=== PATIENT | female | born 1965 | race Caucasian/White ===

== ENCOUNTER 2016-06-26 17:58 | Emergency (ER) | payer OTHER ==
[2016-06-26 18:12] VITALS: RESP 16; TEMP 98.4; O2SAT 99
[2016-06-26 18:27] VITALS: BMI 26.6
[2016-06-26] MEDS ORDERED: Famotidine 20mg/50ml 50 ML IV STA (18:47)
[2016-06-26] MEDS ORDERED: Sodium Chloride 0.9% 1,000 ML IV STA (18:47)
--- NOTE | 2016-06-26 19:02 | ED PDOC ---
Arrival/HPI - General Chief Complaint: Abdominal Pain Time Seen by Provider: 06/26/16 18:46 Historian: Patient - History of Present Illness Narrative History of Present Illness (Text): 06/26/16 18:33 A 50 year old female presents to the emergency department complaining of constant right lower abdominal pain that began an hour and half ago. Pain is associated with nausea and non bloody, no bilious vomiting. There are no relieving or exacerbation factors. Patient mentions she had some hematuria 2 weeks ago. She denies any urinary changes at this time. Patient denies any fever , chills or any other complaints. Time/Duration: 1-3 hours Symptom Onset: Sudden Symptom Course: Unchanged Quality: Other Activities at Onset: Rest Context: Home Associated Symptoms (Text): nausea and vomiting Past Medical History - Provider Review Nursing Documentation Reviewed: Yes - Psychiatric Hx Substance Use: No - Surgical History Hx Section: Yes (x 2) Family/Social History - Physician Review Nursing Documentation Reviewed: Yes Family/Social History: No Known Family HX Smoking Status: Never Smoked Hx Alcohol Use: No Hx Substance Use: No Allergies/Home Meds Allergies/Adverse Reactions: Allergies No Known Allergies Allergy (Verified 06/26/16 18:27) Physical Exam - Physical Exam Narrative Physical Exam (Text): - Review of Systems Constitutional: Normal. absent: Fatigue, Weight Change, Fevers Eyes: Normal ENT: Normal Respiratory: Normal absent: SOB, Cough, Sputum Cardiovascular: Normal absent: Chest pain, Palpitations, Syncope Gastrointestinal: Right lower abdominal pain. Nausea. Vomiting. absent: Diarrhea , Genitourinary: Normal. absent: Dysuria, Frequency, Hematuria Musculoskeletal: Normal. absent: Arthralgias, Back Pain, Neck Pain Skin: Normal Neurological: Normal absent: Focal Weakness Endocrine: Normal Hemo/Lymphatic: Normal Psychiatric: Normal - Physical exam Patient appears age appropriate, speaking full sentences without difficulty - Systems Exam Head: Present: Atraumatic, Normocephalic Pupils: Present: PERRL Extraocular Muscles: Present: EOMI Conjunctiva: Present: Normal Mouth: Present: Moist Mucous Membranes Neck: Present: Normal Range of Motion. No: MIDLINE TENDERNESS, Paraspinal Tenderness Respiratory/Chest: Present: Clear to Auscultation, Good Air Exchange. No: Respiratory Distress, Accessory Muscle Use, Tachypneic Cardiovascular: Present: Regular Rate and Rhythm, Normal S1, S2, Peripheral Pulses Present. No: Murmurs Abdomen: Present: Normal Bowel Sounds. Right lower quadrant tenderness. No: Peritoneal Signs, Rebound, Guarding, Distention Back: Present: Right CVA tenderness with palpation. No: Midline Tenderness, Paraspinal Tenderness Upper Extremity: Present: Normal Inspection. No: Cyanosis, Edema Lower Extremity: Present: Normal Inspection. No: Edema Neurological: Present: GCS=15, Speech Normal, cranial nerves II through XII fully intact with no cerebellar abnormality, neuro-sensory fully intact. No focal neurological deficits. Skin: Present: Warm, Dry, Normal Color. No: Rashes Lymphatic: Present: OX3, NI, NC Psychiatric: Present: Alert, Oriented x 3, Normal Insight, Normal Concentration Vital Signs Reviewed: Yes Vital Signs Temp Pulse Resp BP Pulse Ox 06/26/16 22:47 74 16 113/66 99 06/26/16 19:59 80 16 142/82 99 06/26/16 17:59 98.4 F 77 16 139/70 99 Temperature: Afebrile Blood Pressure: Normal Pulse: Regular Respiratory Rate: Normal Appearance: Positive for: Well-Appearing, Non-Toxic, Comfortable Pain Distress: None Mental Status: Positive for: Alert and Oriented X 3 Medical Decision Making ED Course and Treatment: 06/26/16 18:33 Impression: A 50 year old female with right lower quadrant pain. On physical examination the patient has right CVA tenderness, right lower quadrant tenderness to palpation. Differential Diagnosis included but are not limited to: Renal colic vs. appendicitis vs. nephrolithiasis Plan: -- Abdomen/Pelvis CT -- Labs -- Urinalysis -- Pepcid, Toradol, Zofran and IV Fluids -- Reassess and disposition Progress Notes: 06/26/16 21:53 On reevaluation, patient's abdomen is soft nontender nondistended with positive bowel sounds in all 4 quadrants and no peritoneal signs. Patient states that she feels much better. Currently going to CAT scan Patient informed that she has hematuria, and she was instructed to follow up with a urologist and director of solutions architecture for further workup. Patient verbalized understanding. 06/26/16 22:57 CT FINDINGS: Lower thorax: Mild atelectasis/scarring. ABDOMEN: Liver: Fatty infiltration. Gallbladder and bile ducts: No calcified stones. No ductal dilation. Pancreas: Unremarkable. No ductal dilation. Spleen: No splenomegaly. Adrenals: No mass. Kidneys and ureters: No renal calculi. Mild pelvocaliectasis of RIGHT kidney. Mildly dilated RIGHT ureter. 0.3 x 0.3 x 0.3 cm calculus within RIGHT distal ureter. Stomach and bowel: No definite mural thickening. No obstruction. Appendix: No findings to suggest acute appendicitis. PELVIS: Bladder: Unremarkable. No stones. Reproductive: Unremarkable as visualized. ABDOMEN and PELVIS: Intraperitoneal space: No significant fluid collection. No free air. Bones/joints: No acute fracture. Soft tissues: Tiny umbilical hernia containing fat. Vasculature: Unremarkable. No abdominal aortic aneurysm. Lymph nodes: No pathologically enlarged lymph nodes. IMPRESSION: 1. RIGHT distal ureteral calculus with mild hydroureteronephrosis. 2. Incidental/non-acute findings are described above. Dictated and Authenticated by: Haseeb Graf MD On reevaluation, patient reports that she feels much better and would like to be discharged home. Patient's repeat abdominal exam is soft, nontender, non distended with positive bowel sounds in all 4 quadrants and no peritoneal signs. Patient is tolerating PO without any difficulty. Pt states she understands to return to the ER right away for new or worsening symptoms or for inability to f/u with PMD or specialist as instructed. Patient states that she fully agrees with and understands discharge instructions. States that she agrees with the plan and disposition. Verbalized and repeated discharge instructions and plan. I have given the patient opportunity to ask any additional questions. - Lab Interpretations Lab Results: 06/26/16 19:31 06/26/16 19:31 Lab Results 06/26/16 19:31: WBC 5.3, RBC 4.58, Hgb 11.2 L, Hct 34.4 L, MCV 75.1 L, MCH 24.5 L, MCHC 32.6, RDW 15.1 H, Plt Count 276, MPV 11.3 H, Gran % 60.6, Lymph % (Auto ) 30.2, [place] % (Auto) 8.4 H, Eos % (Auto) 0.4 L, Baso % (Auto) 0.4, Gran # 3.23 , Lymph # 1.6, [place] # 0.5, Eos # 0.0, Baso # 0.02, PT 10.7, INR 0.99, APTT 27.1 , Sodium 137, Potassium 4.1, Chloride 104, Carbon Dioxide 21, Anion Gap 16, BUN 9, Creatinine 0.6, Est GFR ( Amer) > 60, Est GFR (Non-Af Amer) > 60, Random Glucose 100, Calcium 9.6, Total Bilirubin 0.3, AST 28, ALT 25, Alkaline Phosphatase 87, Total Protein 8.2, Albumin 4.4, Globulin 3.8, Albumin/Globulin Ratio 1.2, Lipase 178, Urine Color Yellow, Urine Appearance Clear, Urine pH 6.0 , Ur Specific [place] >= 1.030, Urine Protein Negative, Urine Glucose (UA) Negative, Urine Ketones Negative, Urine Blood Small H, Urine Nitrate Negative, Urine Bilirubin Negative, Urine Urobilinogen 0.2, Ur Leukocyte Esterase Negative , Urine RBC 5 - 10, Urine WBC 0 - 2, Ur Epithelial Cells 6 - 8, Amorphous Sediment Few, Urine Bacteria Many, Urine Other [place] I have reviewed the lab results: Yes - RAD Interpretation Radiology Orders: 06/26/16 18:46 ABD & PELVIS W/O PO OR IV CONT [CT] Stat - Medication Orders Current Medication Orders: Discontinued Medications Famotidine (Pepcid 20mg/50ml Premix) 50 mls @ 100 mls/hr IV STAT STA Stop: 06/26/16 19:16 Last Admin: 06/26/16 19:35 Dose: 100 MLS/HR eMAR Start Stop Document 06/26/16 19:35 HI (Rec: 06/26/16 19:35 NC [id number]) Intravenous Solution Start Date 06/26/16 Start Time 19:25 Sodium Chloride (Sodium Chloride 0.9%) 1,000 mls @ 1,000 mls/hr IV .Q1H STA Stop: 06/26/16 19:46 Last Admin: 06/26/16 19:41 Dose: 1,000 MLS/HR eMAR Start Stop Document 06/26/16 19:41 HI (Rec: 06/26/16 19:41 NC [id number]) Intravenous Solution Start Date 06/26/16 Start Time 18:25 Ketorolac Tromethamine (Toradol) 15 mg IVP STAT STA Stop: 06/26/16 18:48 Last Admin: 06/26/16 19:41 Dose: 15 MG IVP Administration Document 06/26/16 19:41 HI (Rec: 06/26/16 19:41 NC [id number]) Charges for Administration # of IVP Administrations 1 Ondansetron HCl (Zofran Inj) 4 mg IVP STAT STA Stop: 06/26/16 18:48 Last Admin: 06/26/16 19:41 Dose: 4 MG IVP Administration Document 06/26/16 19:41 HI (Rec: 06/26/16 19:42 NC [id number]) Charges for Administration # of IVP Administrations 1 - Scribe Statement The provider has reviewed the documentation as recorded by the Scribe Mckenna Hughes Provider Scribe Attestation: All medical record entries made by the Scribe were at my direction and personally dictated by me. I have reviewed the chart and agree that the record accurately reflects my personal performance of the history, physical exam, medical decision making, and the department course for this patient. I have also personally directed, reviewed, and agree with the discharge instructions and disposition. Disposition/Present on Arrival - Present on Arrival Any Indicators Present on Arrival: No History of DVT/PE: No History of Uncontrolled Diabetes: No Urinary Catheter: No History of Decub. Ulcer: No History Surgical Site Infection Following: None - Disposition Have Diagnosis and Disposition been Completed?: Yes Diagnosis: Renal colic Disposition: HOME/ ROUTINE Disposition Time: 22:59 Patient Plan: Discharge Condition: GOOD Discharge Instructions (ExitCare): Renal Colic (ED) Additional Instructions: PLEASE RETURN TO THE EMERGENCY DEPARTMENT FOR NEW OR WORSENING SYMPTOMS. RETURN RIGHT AWAY IF YOU CANNOT FOLLOW UP WITH YOUR PRIMARY CARE DOCTOR, CLINIC, OR SPECIALIST IN 1-2 DAYS. Prescriptions: Tamsulosin [Flomax] 0.4 mg PO DAILY #4 cap Ibuprofen [Motrin] 600 mg PO Q8 PRN #12 tab PRN Reason: Pain, Moderate (4-7) Ondansetron [Zofran Odt] 4 mg PO Q6 PRN #14 odt PRN Reason: Nausea/Vomiting Referrals: Chelly Cervantes MD [Primary Care Provider] - Follow up with primary Jim Balderrama MD [Staff Provider] - Follow up with primary Belle Balderrama MD [Staff Provider] - Follow up with primary Forms: WORK NOTE
[2016-06-26 19:41] LABS: ADD MANUAL DIFF? NO
[2016-06-26 19:47] LABS: BASO # 0.02 K/mm3 (0.0-2.0); BASO % 0.4 % (0.0-3.0); EOS % 0.4 % (1.5-5.0); GRAN # 3.23 (1.4-6.5); GRAN % 60.6 % (50.0-68.0); HEMATOCRIT 34.4 % (36.0-48.0); LYMPH # 1.6 (1.2-3.4); LYMPH % 30.2 % (22.0-35.0); MEAN CELL VOLUME 75.1 fL (80.0-105.0); MEAN CORPUSCULAR HEMOGLOBIN 24.5 pg (25.0-35.0); MEAN CORPUSCULAR HGB CONC 32.6 g/dl (31.0-37.0); MEAN PLATELET VOLUME 11.3 fl (7.0-11.0); MONO # 0.5 (0.1-0.6); MONO % 8.4 % (1.0-6.0); PLATELET COUNT 276 10^3/uL (120.0-450.0); RED CELL DISTRIBUTION WIDTH 15.1 % (11.5-14.5); URINE BILIRUBIN NEGATIVE (NEGATIVE); URINE BLOOD SMALL (NEGATIVE); URINE GLUCOSE (UA) NEGATIVE (NEGATIVE); URINE KETONE NEGATIVE (NEGATIVE); URINE LEUKOCYTE ESTERASE NEGATIVE Leu/uL (NEGATIVE); URINE PROTEIN NEGATIVE mg/dL (<30 mg/dL); URINE UROBILINOGEN 0.2 E.U./dL (<1 E.U./dL); WHITE BLOOD COUNT 5.3 10^3/ul (4.5-11.0)
[2016-06-26 19:52] LABS: URINE APPEARANCE CLEAR (CLEAR); URINE COLOR YELLOW (YELLOW)
[2016-06-26 19:56] LABS: URINE BACTERIA MANY (NEG); URINE WBC 0 - 2 /hpf (0-6)
[2016-06-26 19:57] LABS: URINE AMORPHOUS SEDIMENT FEW
[2016-06-26 20:02] LABS: ALB/GLOB RATIO 1.2 (1.1-1.8); ALKALINE PHOSPHATASE 87 U/L (38-133); ALT/SGPT 25 U/L (7-56); AST/SGOT 28 U/L (15-39); BILIRUBIN,TOTAL 0.3 mg/dL (0.2-1.3); BLOOD UREA NITROGEN 9 mg/dL (7-21); CALCIUM 9.6 mg/dL (8.4-10.5); CARBON DIOXIDE 21 mmol/L (21-33); CHLORIDE 104 mmol/L (98-107); GFR AFRICAN-AMERICAN > 60; GLUCOSE,RANDOM 100 mg/dL (70-110); LIPASE 178 U/L (23-300); POTASSIUM 4.1 mmol/L (3.6-5.0); SODIUM 137 mmol/L (132-148); TOTAL PROTEIN 8.2 g/dL (5.8-8.3)
[2016-06-26 20:28] LABS: INR 0.99 (0.93-1.08); PARTIAL THROMBOPLASTIN TIME 27.1 Seconds (23.7-30.8)
[2016-06-26 22:47] VITALS: BP 113/66; PULSE 74
--- NOTE | 2016-06-26 22:52 | CT ---
EXAM: CT Abdomen and Pelvis Without Intravenous Contrast. CLINICAL HISTORY: 50 years old, female; Pain; Abdominal pain; Localized; Right lower quadrant (rlq); Additional info: Rlq pain TECHNIQUE: Axial computed tomography images of the abdomen and pelvis without intravenous contrast. This CT exam was performed using one or more of the following dose reduction techniques: automated exposure control, adjustment of the mA and/or kV according to patient size, and/or use of iterative reconstruction technique. Coronal and sagittal reformatted images were created and reviewed. COMPARISON: US - TRANSVAGINAL 06/21/2016 1:30:24 PM FINDINGS: Lower thorax: Mild atelectasis/scarring. ABDOMEN: Liver: Fatty infiltration. Gallbladder and bile ducts: No calcified stones. No ductal dilation. Pancreas: Unremarkable. No ductal dilation. Spleen: No splenomegaly. Adrenals: No mass. Kidneys and ureters: No renal calculi. Mild pelvocaliectasis of RIGHT kidney. Mildly dilated RIGHT ureter. 0.3 x 0.3 x 0.3 cm calculus within RIGHT distal ureter. Stomach and bowel: No definite mural thickening. No obstruction. Appendix: No findings to suggest acute appendicitis. PELVIS: Bladder: Unremarkable. No stones. Reproductive: Unremarkable as visualized. ABDOMEN and PELVIS: Intraperitoneal space: No significant fluid collection. No free air. Bones/joints: No acute fracture. Soft tissues: Tiny umbilical hernia containing fat. Vasculature: Unremarkable. No abdominal aortic aneurysm. Lymph nodes: No pathologically enlarged lymph nodes. IMPRESSION: 1. RIGHT distal ureteral calculus with mild hydroureteronephrosis. 2. Incidental/non-acute findings are described above.
== END 2016-06-26 23:14 | disposition home or self-care (01) ==
LOC: ED 17:58
DX: N20.1 Calculus of ureter (principal)
CPT/HCPCS: 74176; 80053; 81001; 83690; 85025; 85610; 85730; 96374; 96375; 99284; J1885; J2405; J7040